=== PATIENT | female | born 1970 | race Asian ===

== ENCOUNTER 2016-04-21 12:40 | Observation (INO) | payer BC ==
[~2016-04-21] VITALS: Ht 167.6 cm; Wt 108.2 kg
[~2016-04-21 12:40] MED LIST: AMLO2.5T PO
--- NOTE | 2016-04-21 15:30 | NUR ---
PATIENT ADMITTED TO ROOM [address] MARTIN'S OFFICE. PATIENT ORIENTED TO ROOM AND CALL SYSTEM. ORDERS RECEIVED AND CARRIED OUT. PATIENT DENIES CHEST PAIN AT THIS TIME. FAMILY AT BEDSIDE WITH PATIENT.
[2016-04-21 16:10] VITALS: BP 198/97; TEMP 97.5; Ht 167.6 cm; Wt 108.2 kg
[2016-04-21 16:48] LABS: POTASSIUM 3.4 mmol/L (3.6-5.2); SODIUM 135 mmol/L (136-145)
--- NOTE | 2016-04-21 17:00 | NUR ---
PATIENT HAS BEEN STUCK MULTIPLE TIMES FOR LABS, UNABLE TO GET ENOUGH BLOOD TO COMPLETE ALL ORDERED LABS. DR. MARTIN NOTIFIED OF ALL RESULTED TESTS WELL STATUS OF LABS.
[2016-04-21] MEDS ORDERED: INTEGRA PO (17:36)
--- NOTE | 2016-04-21 17:55 | NUR ---
DR. MARTIN HERE, SPOKE TO LAB. LAB AND RESPIRATORY IN PATIENT'S ROOM ATTEMPTING TO OBTAIN BLOOD FOR LABS.
[2016-04-21 17:56] LABS: PLATELET COUNT 480 K/uL (152-353)
[2016-04-21 19:32] LABS: PARTIAL THROMBOPLASTIN TIME 19.2 SECONDS (24.5-33.6)
[2016-04-21 20:09] VITALS: BP 175/76; TEMP 97.8
[2016-04-22] VITALS: BP 143/78; TEMP 98.3
[2016-04-22 04:00] VITALS: BP 176/96; TEMP 98
[2016-04-22 08:00] VITALS: BP 161/87; TEMP 98.1
[2016-04-22 08:59] LABS: POTASSIUM 3.6 mmol/L (3.6-5.2); SODIUM 138 mmol/L (136-145)
[2016-04-22 09:01] LABS: PLATELET COUNT 533 K/uL (152-353)
[2016-04-22 11:59] VITALS: BP 186/97; TEMP 98.4
[2016-04-22 16:00] VITALS: BP 174/99; TEMP 98.5
== END 2016-04-22 16:25 | disposition home or self-care (01) ==
LOC: MED/SURG 12:40
PROVIDERS: ADMIT Family Medicine
PROC: 30233N1 Transfusion of Nonautologous Red Blood Cells into Peripheral Vein, Percutaneous Approach (ICD-10-PCS; principal; 2016-04-21)
DX: D50.8 Other iron deficiency anemias (principal); E86.0 Dehydration; N30.00 Acute cystitis without hematuria
CPT/HCPCS: 36415; 36600; 80053; 82550; 82607; 82728; 82805; 83540; 83550; 84484; 85027; 85610; 85730; 86850; 86900; 86901; 86922; 93005; 94760; 96367; 96374; 99220; G0378; G0379; J2270; P9016; Q0138

== ENCOUNTER 2016-04-28 11:30 | Outpatient (CLI) | payer BC ==
[~2016-04-28] VITALS: Ht 167.6 cm; Wt 105.2 kg
[~2016-04-28 11:30] MED LIST changes: +INTEGRA PO
== END 2016-04-28 19:55 | disposition home or self-care (01) ==
LOC: INF 11:30
DX: D50.9 Iron deficiency anemia, unspecified (principal)
CPT/HCPCS: 96365; J2916; Q0138

== ENCOUNTER 2017-10-19 14:50 | Outpatient (CLI) | payer BC ==
[2017-10-19 16:19] LABS: PLATELET COUNT 540 K/uL (152-353)
== END 2017-10-19 19:19 | disposition home or self-care (01) ==
LOC: LABW 14:50
PROVIDERS: Physician Assistant
DX: M54.2 Cervicalgia (principal); R63.8 Other symptoms and signs concerning food and fluid intake; I10 Essential (primary) hypertension; R79.89 Other specified abnormal findings of blood chemistry
CPT/HCPCS: 36415; 80053; 80061; 83036; 84439; 84443; 85027

== ENCOUNTER 2017-10-19 19:26 | Outpatient (CLI) | payer BC ==
[~2017-10-19] VITALS: Ht 165.1 cm; Wt 106.8 kg
[2017-10-20 16:13] LABS: PLATELET COUNT 504 K/uL (152-353)
== END 2017-10-20 16:30 | disposition home or self-care (01) ==
LOC: INF 19:26
PROVIDERS: Internal Medicine
PROC: 30233N1 Transfusion of Nonautologous Red Blood Cells into Peripheral Vein, Percutaneous Approach (ICD-10-PCS; principal; 2017-10-19)
PROC: 30233N1 Transfusion of Nonautologous Red Blood Cells into Peripheral Vein, Percutaneous Approach (ICD-10-PCS; 2017-10-20)
DX: D64.89 Other specified anemias (principal)
CPT/HCPCS: 36430; 85027; 86850; 86900; 86901; 86922; 96374; J1940; P9016

== ENCOUNTER 2018-08-02 08:44 | Outpatient (CLI) | payer BC ==
[2018-08-02 09:06] LABS: PLATELET COUNT 283 K/uL (152-353)
[2018-08-02 09:40] LABS: POTASSIUM 3.4 mmol/L (3.6-5.2)
== END 2018-08-02 19:31 | disposition home or self-care (01) ==
LOC: LABW 08:44
PROVIDERS: Physician Assistant
DX: I10 Essential (primary) hypertension (principal); D64.89 Other specified anemias; Z79.899 Other long term (current) drug therapy; E55.9 Vitamin D deficiency, unspecified
CPT/HCPCS: 36415; 80053; 80061; 82306; 83036; 84439; 84443; 85027

== ENCOUNTER 2018-08-02 09:09 | Emergency (ER) | payer BC ==
[~2018-08-02] VITALS: Ht 165.1 cm; Wt 106.6 kg
[2018-08-02 09:10] VITALS: BP 173/82; TEMP 97.5
== END 2018-08-02 09:58 | disposition home or self-care (01) ==
LOC: ED 09:09
DX: L03.115 Cellulitis of right lower limb (principal); S80.261A Insect bite (nonvenomous), right knee, initial encounter; S70.361A Insect bite (nonvenomous), right thigh, initial encounter
CPT/HCPCS: 99282

== ENCOUNTER 2018-09-18 20:47 | Outpatient (CLI) | payer BC | END 2018-09-18 23:29 | disposition home or self-care (01) | LOC: RAD 20:47 | DX: R05 Cough (principal) ==

== ENCOUNTER 2018-11-04 10:19 | Outpatient (CLI) | payer BC ==
[2018-11-04 10:57] LABS: PLATELET COUNT 273 K/uL (152-353)
== END 2018-11-04 21:39 | disposition home or self-care (01) ==
LOC: LABW 10:19
PROVIDERS: Physician Assistant
DX: L30.9 Dermatitis, unspecified (principal)
CPT/HCPCS: 36415; 80053; 84443; 85027; 85651; 86038; 86430

== ENCOUNTER 2019-02-25 16:04 | Outpatient (CLI) | payer BC | END 2019-02-25 19:37 | disposition home or self-care (01) | LOC: US 16:04 | DX: I10 Essential (primary) hypertension (principal) ==

== ENCOUNTER 2019-11-02 11:40 | Outpatient (CLI) | payer BC | END 2019-11-02 14:00 | LOC: LABW 11:40 | PROVIDERS: ATTEND Internal Medicine | DX: E26.9 Hyperaldosteronism, unspecified (principal) | CPT/HCPCS: 82088 ==

== ENCOUNTER 2019-11-27 09:06 | Outpatient (CLI) | payer BC | END 2019-11-27 21:44 | disposition home or self-care (01) | LOC: CT 09:06 | DX: E26.9 Hyperaldosteronism, unspecified (principal) ==

== ENCOUNTER 2020-11-02 14:35 | Outpatient (CLI) | payer BC | END 2020-11-02 21:37 | disposition home or self-care (01) | LOC: CT 14:35 | PROVIDERS: ATTEND Internal Medicine | DX: G44.201 Tension-type headache, unspecified, intractable (principal) ==

== ENCOUNTER 2022-01-10 16:57 | Outpatient (CLI) | payer BC | END 2022-01-10 19:27 | disposition home or self-care (01) | LOC: RAD 16:57 | PROVIDERS: ATTEND Nurse Practitioner Family | DX: M54.2 Cervicalgia (principal) ==

== ENCOUNTER 2022-03-08 09:40 | Outpatient (CLI) | payer BC | END 2022-03-08 19:19 | disposition home or self-care (01) | LOC: US 09:40 | PROVIDERS: ATTEND Nurse Practitioner Family | DX: R74.8 Abnormal levels of other serum enzymes (principal) ==

== ENCOUNTER 2022-03-28 17:30 | Emergency (ER) | payer BC ==
[~2022-03-28] VITALS: Ht 167.6 cm; Wt 112.5 kg
[2022-03-28 17:30] VITALS: BP 175/95; TEMP 98.8
[2022-03-28 18:52] LABS: PLATELET COUNT 251 K/uL (152-353)
[2022-03-28 19:24] LABS: PARTIAL THROMBOPLASTIN TIME 27.5 SECONDS (24.5-33.6)
== END 2022-03-28 23:57 | disposition home or self-care (01) ==
LOC: ED 17:30
PROVIDERS: Emergency Medicine
DX: M54.2 Cervicalgia (principal); R53.1 Weakness
CPT/HCPCS: 36415; 80053; 81002; 84484; 85027; 85610; 85730; 99283

== ENCOUNTER 2022-04-13 13:13 | Outpatient (CLI) | payer BC | END 2022-04-13 18:52 | disposition home or self-care (01) | LOC: MRI 13:13 | PROVIDERS: ATTEND Physician Assistant | DX: M54.12 Radiculopathy, cervical region (principal) ==